=== PATIENT | female | born 1995 | race Caucasian/White ===

== ENCOUNTER 2016-05-17 10:20 | Emergency (ER) | payer SELFPAY ==
[~2016-05-17] VITALS: Ht 152.4 cm; Wt 70.3 kg
[~2016-05-17 10:20] MED LIST: HYDR-3240 PO; NAPR500T3 PO; OXYC-302 PO; PREN1TAB52 PO
[2016-05-17 10:25] VITALS: BP 112/64
== END 2016-05-17 12:34 | disposition home or self-care (01) ==
LOC: ED 11:12
DX: O26.891 Other specified pregnancy related conditions, first trimester (principal); R10.2 Pelvic and perineal pain
CPT/HCPCS: 36415; 81003; 84702; 99284

== ENCOUNTER 2016-05-24 07:56 | Emergency (ER) | payer MEDICAID ==
[~2016-05-24] VITALS: Ht 152.4 cm; Wt 68.5 kg
[2016-05-24] MEDS ORDERED: ONDANSETRON 2MG/ML, 2ML ONE (08:27)
[2016-05-24] MEDS ORDERED: SODIUM CHLORIDE 0.9% 1,000ML IVBOLUS ONE (08:30)
[2016-05-24] MEDS ORDERED: ONDANSETRON 2MG/ML, 2ML IVPush ONE (08:30)
[2016-05-24 09:00] LABS: HEMOGLOBIN 14.4 g/dL (11.7-16.4)
[2016-05-24 09:02] LABS: ASPARTATE AMINO TRANSFERASE 9 U/L (15-37); BLOOD UREA NITROGEN 8 mg/dL (7-18)
[2016-05-24 11:25] VITALS: BP 101/49
== END 2016-05-24 11:28 | disposition home or self-care (01) ==
LOC: ED 08:57
DX: O21.1 Hyperemesis gravidarum with metabolic disturbance (principal); Z3A.01 Less than 8 weeks gestation of pregnancy; E86.0 Dehydration
CPT/HCPCS: 36415; 76801; 80053; 81001; 84702; 85025; 87086; 96361; 96374; 99285; J2405; J7030

== ENCOUNTER 2016-05-29 19:16 | Emergency (ER) | payer MEDICAID ==
[~2016-05-29] VITALS: Ht 152.4 cm; Wt 66.1 kg
[2016-05-29] MEDS ORDERED: ONDANSETRON ODT 4 MG ONE (19:52)
[2016-05-29] MEDS ORDERED: ONDANSETRON ODT 4 MG PO ONE (20:00)
[2016-05-29 20:50] LABS: HEMOGLOBIN 15.1 g/dL (11.7-16.4)
[2016-05-29 20:55] LABS: ASPARTATE AMINO TRANSFERASE 9 U/L (15-37); BLOOD UREA NITROGEN 10 mg/dL (7-18)
[2016-05-29] MEDS ORDERED: SODIUM CHLORIDE FLUSH 10ML SYR IVF ONE (21:30)
[2016-05-29] MEDS ORDERED: SODIUM CHLORIDE 0.9% 1,000ML IVBOLUS ONE (21:30)
[2016-05-29] MEDS ORDERED: D5%-0.9% NACL 1,000 ML IV ONE (21:30)
[2016-05-29] MEDS ORDERED: ONDANSETRON 2MG/ML, 2ML IVPush ONE (21:30)
[2016-05-29] MEDS ORDERED: ONDANSETRON 2MG/ML, 2ML ONE (21:51)
[2016-05-29 23:48] VITALS: BP 112/50
== END 2016-05-29 23:52 | disposition home or self-care (01) ==
LOC: ED 21:22
DX: O21.0 Mild hyperemesis gravidarum (principal); O23.42 Unspecified infection of urinary tract in pregnancy, second trimester; Z3A.21 21 weeks gestation of pregnancy
CPT/HCPCS: 36415; 80053; 81001; 85025; 87086; 96361; 96374; 99285; J2405; J7030; Q0162; J7042

== ENCOUNTER 2016-12-04 09:50 | Observation (INO) | payer MEDICAID, OTHER ==
[~2016-12-04 09:50] MED LIST changes: -NAPR500T3 PO; +NAPR500T4 PO
[2016-12-04 10:29] LABS: DAU SCREEN DISCLAIMER
[2016-12-04] MEDS ORDERED: LACTATED RINGERS 1,000 ML IV SCH (11:17)
[2016-12-04 11:30] VITALS: BP 107/57
== END 2016-12-04 13:00 | disposition home or self-care (01) ==
LOC: LDOP 09:50 → LDIP 11:25
PROVIDERS: ADMIT Obstetrics & Gynecology Female Pelvic Medicine and Reconstructive Surgery; ATTEND Obstetrics & Gynecology Female Pelvic Medicine and Reconstructive Surgery
DX: O42.90 Premature rupture of membranes, unspecified as to length of time between rupture and onset of labor, unspecified weeks of gestation (principal); Z3A.00 Weeks of gestation of pregnancy not specified
CPT/HCPCS: 59025; 80307; 81001; 96360; 99211; G0378; J7120; G0463; G0479

== ENCOUNTER 2016-12-23 15:11 | Outpatient (CLI) | payer MEDICAID, OTHER ==
[~2016-12-23] VITALS: Ht 152.4 cm; Wt 75.0 kg
[2016-12-23 15:44] VITALS: BP 134/77
[2016-12-23] MEDS ORDERED: PREN1TAB10 PO (16:19)
[2016-12-23 16:20] LABS: DAU SCREEN DISCLAIMER
[2016-12-23] MEDS ORDERED: ASPI-515 PO (16:20)
[2017-01-11] MEDS ORDERED: IBUP-1222 PO (14:06)
[2017-01-11] MEDS ORDERED: DOCU-131 PO (14:06)
[2017-01-11] MEDS ORDERED: OXYC-307 PO (14:06)
== END 2016-12-23 17:10 | disposition home or self-care (01) ==
LOC: LDOP 15:11
PROVIDERS: ATTEND Obstetrics & Gynecology Female Pelvic Medicine and Reconstructive Surgery
DX: O36.8130 Decreased fetal movements, third trimester, not applicable or unspecified (principal); O11.3 Pre-existing hypertension with pre-eclampsia, third trimester; Z3A.36 36 weeks gestation of pregnancy
CPT/HCPCS: 59025; 80307; 99211; G0463; G0479